=== PATIENT | male | born 1940 | race Caucasian/White ===

== ENCOUNTER 2017-07-08 11:35 | Inpatient (IN) | payer MEDICARE ==
[~2017-07-08] VITALS: Ht 172.7 cm; Wt 77.0 kg
[2017-07-08] MEDS ORDERED: FENTANYL PF 250 MCG/5ML ONE (12:10)
[2017-07-08] MEDS ORDERED: MIDAZOLAM 1 MG/ML, 2ML ONE (12:10)
[2017-07-08] MEDS ORDERED: LIDOCAINE GEL 2%, 5ML ONE (12:10)
[2017-07-08] MEDS ORDERED: GLUC1TAB53 PO (12:19)
[2017-07-08] MEDS ORDERED: GLIP5TAB10 PO (12:19)
[2017-07-08] MEDS ORDERED: TRAM50TA2 PO (12:19)
[2017-07-08] MEDS ORDERED: GABA300C10 PO (12:19)
[2017-07-08] MEDS ORDERED: METF1000 PO (12:19)
[2017-07-08] MEDS ORDERED: ASPI-496 PO (12:19)
[2017-07-08] MEDS ORDERED: MELO15TA24 PO (12:19)
[2017-07-08] MEDS ORDERED: NIAC500C3 PO (12:19)
[2017-07-08] MEDS ORDERED: LISI-170 PO (12:19)
[2017-07-08] MEDS ORDERED: FINA5TAB4 PO (12:19)
[2017-07-08] MEDS ORDERED: BUPIVACAINE/PF 0.5% ONE (12:25)
[2017-07-08 12:26] VITALS: BP 131/79
[2017-07-08] MEDS ORDERED: THROMBIN 20,000 UNIT VIAL TP ONE (12:26)
[2017-07-08] MEDS ORDERED: HEPARIN 1,000 UNITS/ML, 10ML ONE (12:26)
[2017-07-08] MEDS ORDERED: BACITRACIN 50,000 UNIT ONE (12:26)
[2017-07-08] MEDS ORDERED: PROTAMINE SULFATE 10 MG/ML, 5ML ONE (12:26)
[2017-07-08] MEDS ORDERED: PAPAVERINE 30 MG/ML, 2ML ONE (12:26)
[2017-07-08 12:40] LABS: BASOPHILS # (AUTO) 0.03 x10^3/uL (0-0.1); BASOPHILS % (AUTO) 0 % (0-1); EOSINOPHILS # (AUTO) 0.22 x10^3/uL (0-0.4); EOSINOPHILS % (AUTO) 3 % (1-7); LYMPHOCYTES # (AUTO) 1.88 x10^3/uL (1-3.4); LYMPHOCYTES % (AUTO) 25 % (22-44); MD NO; MEAN CORPUSCULAR HEMOGLOBIN 30.9 pg (27.5-34.5); MEAN CORPUSCULAR HGB CONC 33.7 g/dL (33.2-36.2); MEAN CORPUSCULAR VOLUME 91.6 fL (81-97); MEAN PLATELET VOLUME 7.4 fL (7.4-10.4); MONOCYTES # (AUTO) 0.54 x10^3/uL (0.2-0.8); MONOCYTES % (AUTO) 7 % (2-9); NEUTROPHILS # (AUTO) 4.88 x10^3/uL (1.8-6.8); NEUTROPHILS % (AUTO) 65 % (42-75); PLATELET COUNT 375 x10^3/uL (130-400); RED BLOOD COUNT 4.64 x10^6/uL (4.38-5.82)
[2017-07-08 12:53] LABS: ALANINE AMINOTRANSFERASE 25 U/L (12-78); ALBUMIN 3.2 g/dL (3.4-5.0); ANION GAP 6 mmol/L (5-15); CHLORIDE 106 mmol/L (98-107); CREATININE 1.01 mg/dL (0.7-1.3)
[2017-07-08 12:56] LABS: ALKALINE PHOSPHATASE 79 U/L (45-117); BILIRUBIN,TOTAL 0.6 mg/dL (0.2-1.0); TOTAL PROTEIN 7.2 g/dL (6.4-8.2)
[2017-07-08] MEDS ORDERED: NEOSTIGMINE 1 MG/ML, 10ML ONE (13:00)
[2017-07-08] MEDS ORDERED: CEFAZOLIN 1,000 MG ONE (13:00)
[2017-07-08] MEDS ORDERED: DEXAMETHASONE 4 MG/ML, 1ML ONE (13:00)
[2017-07-08] MEDS ORDERED: ROCURONIUM 10 MG/ML,10ML ONE (13:00)
[2017-07-08] MEDS ORDERED: GLYCOPYRROLATE 0.2MG/1ML, 5ML ONE (13:00)
[2017-07-08] MEDS ORDERED: PROPOFOL 10 MG/ML, 20ML ONE (13:00)
[2017-07-08] MEDS ORDERED: EPHEDRINE 50 MG/ML, 1ML ONE (13:00)
[2017-07-08] MEDS ORDERED: ONDANSETRON 2MG/ML, 2ML ONE (13:00)
[2017-07-08] MEDS ORDERED: MEPERIDINE/PF 25MG/0.5ML IVPush PRN (13:30)
[2017-07-08] MEDS ORDERED: OXYcodone 5 MG/5 ML ORAL.SOL UDC PO PRN (13:30)
[2017-07-08] MEDS ORDERED: PROMETHAZINE 12.5 MG SUPP PR PRN (13:30)
[2017-07-08] MEDS ORDERED: morphine SULFATE 10 MG/ML, 1ML IV PRN ×2 (13:30→19:00)
[2017-07-08] MEDS ORDERED: LABETALOL 5MG/ML, 20ML IV PRN (13:30)
[2017-07-08] MEDS ORDERED: ALBUTEROL SULFATE 2.5 MG/3 ML NPPB PRN (13:30)
[2017-07-08] MEDS ORDERED: hydrALAzine 20 MG/ML, 1ML IV PRN (13:30)
[2017-07-08] MEDS ORDERED: MIDAZOLAM 1 MG/ML, 2ML IV PRN (13:30)
[2017-07-08] MEDS ORDERED: FENTANYL PF 100 MCG/2ML IV PRN (13:30)
[2017-07-08] MEDS ORDERED: ONDANSETRON 2MG/ML, 2ML IVPush PRN (13:30)
[2017-07-08] MEDS ORDERED: LABETALOL 5MG/ML, 20ML ONE (14:42)
[2017-07-08] MEDS ORDERED: OXYcodone 5 MG/5 ML ORAL.SOL UDC ONE (15:11)
[2017-07-08] MEDS ORDERED: LACTATED RINGERS 1,000 ML IVBOLUS ONE (16:30)
[2017-07-08 17:58] VITALS: BP 96/57
[2017-07-08] MEDS ORDERED: ONDANSETRON 2MG/ML, 2ML IV PRN (19:00)
[2017-07-08] MEDS ORDERED: HYDROcodone/APAP 5/325 TABLET PO PRN (19:00)
[2017-07-08] MEDS: POTASSIUM CHLORIDE 20 MEQ in LACTATED RINGERS 1,000 ML IV SCH (19:57)
[2017-07-08] MEDS: SODIUM CHLORIDE FLUSH 10ML SYR IVF SCH (20:02)
[2017-07-08 20:05] VITALS: BP 118/66
[2017-07-08] MEDS: CEFAZOLIN PMX 1GM/50ML 50 ML IVPB SCH (23:08)
[2017-07-09 01:13] VITALS: BP 96/53
[2017-07-09] MEDS: POTASSIUM CHLORIDE 20 MEQ in LACTATED RINGERS 1,000 ML IV SCH (05:06)
[2017-07-09] MEDS ORDERED: ENOXAPARIN 40 MG/0.4 ML SQ SCH (06:00)
[2017-07-09 06:53] VITALS: BP 106/55
[2017-07-09] MEDS: CEFAZOLIN PMX 1GM/50ML 50 ML IVPB SCH (06:55)
[2017-07-09] MEDS ORDERED: metFORMIN XR 500 MG TAB.ER.24H PO SCH (08:00)
[2017-07-09 08:22] VITALS: BP 112/61
[2017-07-09] MEDS ORDERED: MELOXICAM 15 MG TABLET PO SCH (09:00)
[2017-07-09] MEDS ORDERED: DOCUSATE 100 MG CAPSULE PO SCH (09:00)
[2017-07-09] MEDS ORDERED: NIACIN 500 MG TABLET.ER PO SCH (09:00)
[2017-07-09] MEDS ORDERED: FINASTERIDE 5 MG TABLET PO SCH (09:00)
[2017-07-09] MEDS ORDERED: POLYETHYLENE GLYCOL 17 GM PACKET PO ONE (09:00)
[2017-07-09] MEDS ORDERED: GABAPENTIN 300 MG CAPSULE PO SCH (09:00)
[2017-07-09] MEDS ORDERED: LISINOPRIL 20 MG TABLET PO SCH (09:00)
[2017-07-09] MEDS ORDERED: TAMSULOSIN 0.4 MG CAP.ER.24H PO SCH (09:00)
[2017-07-09] MEDS: SODIUM CHLORIDE FLUSH 10ML SYR IVF SCH (09:48)
[2017-07-09] MEDS ORDERED: TAMSULOSIN 0.4 MG CAP.ER.24H PO PRN (13:00)
[2017-07-09] MEDS ORDERED: TRAM50TA2 PO (13:09)
[2017-07-09] MEDS ORDERED: DOCU-131 PO (13:16)
[2017-07-09 13:45] VITALS: BP 103/57
== END 2017-07-09 14:10 | DRG 38 ==
LOC: ORIP 11:35 → 5SO 17:50
PROVIDERS: ADMIT Surgery; ATTEND Surgery
PROC: 03CL0ZZ Extirpation of Matter from Left Internal Carotid Artery, Open Approach (ICD-10-PCS; principal; 2017-07-08 13:00)
DX: I65.22 Occlusion and stenosis of left carotid artery (principal); I69.954 Hemiplegia and hemiparesis following unspecified cerebrovascular disease affecting left non-dominant side; E11.69 Type 2 diabetes mellitus with other specified complication; E44.1 Mild protein-calorie malnutrition; E78.5 Hyperlipidemia, unspecified; I10 Essential (primary) hypertension; I25.10 Atherosclerotic heart disease of native coronary artery without angina pectoris; N40.1 Benign prostatic hyperplasia with lower urinary tract symptoms; R33.8 Other retention of urine; Z83.3 Family history of diabetes mellitus; Z87.891 Personal history of nicotine dependence; Z88.0 Allergy status to penicillin; Z79.82 Long term (current) use of aspirin; Z68.25 Body mass index [BMI] 25.0-25.9, adult
CPT/HCPCS: 36415; 80053; 82962; 85025; 86850; 86900; 88305; 93005; J0690; J1100; J1644; J1650; J2250; J2405; J2704; J2710; J2720; J3010; J3480; J3490; J2440; J7120